=== PATIENT | female | born 1970 | race Caucasian/White ===

== ENCOUNTER 2016-08-24 09:39 | Emergency (ER) | payer BC ==
--- NOTE | 2016-08-24 11:53 | UC ---
Skin Complaint HPI - HPI Summary HPI Summary: was outside this weekend, developed red itchy raised rash on back of neck, thinks she got in to smoe poison nyasia - History of Current Complaint Hx Obtained From: Patient Hx Last Menstrual Period: 2013 ?: No Onset/Duration: Sudden Onset, Lasting Days Skin Exposure Onset/Duration: Days Ago Timing: Constant Onset Severity: Mild Current Severity: Moderate Location: Discrete - back of neck Character: Pruritus, Redness, Raised Aggravating: Nothing Alleviating: Nothing Related History: Possible Reaction to: Environmental Exposure <Misti Jordan - Last Filed: 08/24/16 11:54> <Brisa Mendoza - Last Filed: 08/24/16 12:43> - History of Current Complaint Chief Complaint: [facility] Time Seen by Provider: 08/24/16 11:45 Stated Complaint: RASH - Allergy/Home Medications Allergies/Adverse Reactions: Allergies Allergy/AdvReac Type Severity Reaction Status Date / Time No Known Allergies Allergy Verified 08/24/16 10:07 Home Medications: Home Medications Fiber [Fiber Formula] 08/24/16 [History] Review of Systems Constitutional: Negative Skin: Rash Eyes: Negative ENT: Negative Respiratory: Negative Cardiovascular: Negative Gastrointestinal: Negative Genitourinary: Negative Motor: Negative Neurovascular: Negative Musculoskeletal: Negative Neurological: Negative Psychological: Negative All Other Systems Reviewed And Are Negative: Yes <Misti Jordan - Last Filed: 08/24/16 11:54> PMH/Surg Hx/FS Hx/Imm Hx Previously Healthy: Yes - Surgical History Surgical History: None - Family History Known Family History: Negative: Cardiac Disease, Hypertension - Social History Alcohol Use: Occasionally Substance Use Type: None Smoking Status (MU): Never Smoked Tobacco <Misti Jordan - Last Filed: 08/24/16 11:54> Physical Exam Triage Information Reviewed: Yes Appearance: Well-Appearing, Well-Nourished, Pain Distress Vital Signs: Initial Vital Signs Temp 97.9 F 08/24/16 10:03 Pulse 57 08/24/16 10:03 Resp 18 08/24/16 10:03 BP 148/79 08/24/16 10:03 Pulse Ox 100 08/24/16 10:03 Vital Signs Reviewed: Yes Eye Exam: Normal Eyes: Positive: Conjunctiva Clear ENT: Positive: Pharyngeal erythema, TMs normal, TM bulging Dental Exam: Normal Neck exam: Normal Neck: Positive: Supple, Nontender, No Lymphadenopathy Respiratory Exam: Normal Respiratory: Positive: Chest non-tender, Lungs clear, Normal breath sounds Cardiovascular Exam: Normal Cardiovascular: Positive: RRR, No Murmur, Pulses Normal Abdominal Exam: Normal Bowel Sounds: Positive: Present Musculoskeletal Exam: Normal Neurological Exam: Normal Psychological Exam: Normal Skin: Positive: rashes - red raised rash on back of neck up into the hairline. no other spots noted. some blistering noted. <Misti Jordan - Last Filed: 08/24/16 11:54> Vital Signs: Initial Vital Signs Temp 97.9 F 08/24/16 10:03 Pulse 57 08/24/16 10:03 Resp 18 08/24/16 10:03 BP 148/79 08/24/16 10:03 Pulse Ox 100 08/24/16 10:03 <Brisa Mendoza - Last Filed: 08/24/16 12:43> Course/Dx - Course Course Of Treatment: hx obtained, exam performed meds prescribed for poison nyasia - Differential Diagnoses - Skin Complaint Differential Diagnoses: Abscess, Cellulitis, Contact Dermatitis, Poison [place], Poison [place] - Diagnoses Provider Diagnoses: poison nyasia <Misti Jordan - Last Filed: 08/24/16 11:54> Discharge <Misti Jordan - Last Filed: 08/24/16 11:54> <Brisa Mendoza - Last Filed: 08/24/16 12:43> - Discharge Plan Condition: Stable Disposition: HOME Prescriptions: predniSONE TAB* [Deltasone TAB*] 20 mg PO DAILY #18 tab Patient Education Materials: Poison [place] (ED), Cold Compress or Soak (ED) Referrals: No Primary Care Phys,NOPCP [Primary Care Provider] - Additional Instructions: 1. take the medication as prescribed, keep area coveres, cold compresses to area for pain and itching, Hydrocortisone or calamine for itching Attestation Statement User Type: Provider - I was available for consult. This patient was seen by the BK. The patient was not presented to, seen by, or examined by me. <Brisa Mendoza - Last Filed: 08/24/16 12:43>
[2016-08-24 12:04] VITALS: BP 172/90
== END 2016-08-24 12:00 | disposition home or self-care (01) ==
LOC: UCEAST 09:39
DX: L23.7 Allergic contact dermatitis due to plants, except food (principal)
CPT/HCPCS: 99212; G0463